=== PATIENT | female | born 1945 | race Caucasian/White ===

== ENCOUNTER → 2018-02-13 | Outpatient (CLI) | payer OTHER ==
[~2018-02-13] MED LIST: AMLODIPINE BESY10 MG PO; ANTACID650 MG PO; ASPIR 8181 MG PO; COLACE100 MG PO; COMBIVENT INH; KEFLEX500 M1 PO; LEVOTHYROXIN0.025 MG PO; LIPITOR 20 MG T20 M1 PO; MIRALAX17 GM PO; OMEPRAZOLE 20 M20 MG PO; PYRIDIUM200 MG PO; TRINATE TABLET1 TAB PO; VENLAFAXIN75 MG/1 T2 PO; ZESTORETIC 20-1 EAC1 PO
== END ==
LOC: M.RAD 09:28
DX: Z12.31 Encounter for screening mammogram for malignant neoplasm of breast (principal)

== ENCOUNTER 2018-04-17 09:29 | Emergency (ER) | payer OTHER ==
[~2018-04-17] VITALS: Ht 154.9 cm; Wt 90.7 kg
[~2018-04-17 09:29] MED LIST changes: -KEFLEX500 M1 PO; -PYRIDIUM200 MG PO
[2018-04-17 10:10] LABS: URINE BILIRUBIN NEGATIVE (Negative); URINE BLOOD NEGATIVE (Negative); URINE CLARITY CLEAR; URINE COLOR YELLOW; URINE GLUCOSE-RANDOM NEGATIVE (Negative); URINE KETONES TRACE (Negative); URINE LEUKOCYTES-REFLEX TRACE (Negative); URINE PROTEIN TRACE (Negative); URINE UROBILINOGEN 0.2 E.U./dl (0.2-1.0)
[2018-04-17 10:14] LABS: URINE NITRITE-REFLEX POSITIVE (Negative)
[2018-04-17 10:20] LABS: BACTERIA-REFLEX >30 Many /HPF (None Seen); CASTS None Seen /LPF (None Seen); CRYSTALS None Seen /LPF (None Seen); MUCUS None Seen strn/LPF (None Seen); SQUAMOUS 4-10 Moderate /LPF (0-3); URINE RBC 3-10 Few /HPF (0-2); URINE WBC-REFLEX 6-15 Few /HPF (0-5)
[2018-04-17 10:21] LABS: ABSOLUTE EOSINOPHILS 0.2 thou/uL (0.0-0.7); ABSOLUTE MONOCYTES 0.8 thou/uL (0.0-1.2); ABSOLUTE NEUTROPHILS 8.1 thou/uL (1.6-8.1); BASOPHILS 0.3 %; HEMATOCRIT 33.7 % (37.0-47.0); HEMOGLOBIN 11.6 gm/dL (12.0-15.0); MCH 32.5 pg (26.0-34.0); MCHC 34.4 g/dL (28.0-37.0); MCV 94.5 fL (80.0-100.0); MONOCYTES 7.6 %; MPV 7.4 fl. (7.2-11.1); NUCLEATED RBCS 0 /100WBC; PLATELET COUNT* 252 thou/uL (150-400); POLYS 80.1 %; RBC 3.57 mil/uL (4.20-5.00); RDW-CV 12.5 % (10.5-14.5); WBC 10.1 thou/uL (4.0-11.0)
[2018-04-17 10:31] LABS: CALCIUM 10.7 mg/dL (8.5-10.1); CREATININE 1.6 mg/dL (0.6-1.3); POTASSIUM 3.7 mmol/L (3.5-5.1)
[2018-04-17 10:35] LABS: ALBUMIN 3.4 g/dL (3.4-5.0); TOTAL BILIRUBIN 0.3 mg/dL (<0.1-1.0); TOTAL PROTEIN 7.2 g/dL (6.4-8.2)
[2018-04-17] MEDS ORDERED: KEFLEX500 M1 PO (11:07)
[2018-04-17] MEDS ORDERED: PYRIDIUM200 MG PO (11:07)
[2018-04-17 11:23] VITALS: BP 104/59
== END 2018-04-17 11:24 | disposition home or self-care (01) ==
LOC: M.ERS 09:29
PROVIDERS: Personal Emergency Response Attendant
DX: N39.0 Urinary tract infection, site not specified (principal); K59.00 Constipation, unspecified; I10 Essential (primary) hypertension; Z96.641 Presence of right artificial hip joint; Z90.49 Acquired absence of other specified parts of digestive tract; Z88.5 Allergy status to narcotic agent